=== PATIENT | female | born 1980 | race Caucasian/White ===

== ENCOUNTER 2016-10-27 09:52 | Emergency (ER) | payer BC, OTHER ==
[2016-10-27] MEDS ORDERED: PROMETHAZINE HCL 25 MG in DEXTROSE 5 % IN WATER 50 ML IV ONE ×2 (10:49)
[2016-10-27] MEDS ORDERED: NORMAL SALINE 1,000 ML IV ONE (10:49)
[2016-10-27] MEDS ORDERED: diphenhydrAMINE HCL 50 MG/ML VIAL IV ONE ×2 (10:49→12:23)
[2016-10-27] MEDS ORDERED: KETOROLAC TROMETHAMINE 30 MG/ML VIAL IV ONE (10:49)
--- NOTE | 2016-10-27 10:56 | ERNOTE ---
Medical Problem HPI - Narrative Date of Service: 10/27/16 - General Chief Complaint: Nausea/Vomiting Time Seen by Provider: 10/27/16 10:39 Source: patient Exam Limitations: no limitations - Immun/Allergies/Home Medications Immunizations: IMMUNIZATION HX Immunizations Up to Date Yes History of Influenza Vaccine No Hx Pneumococcal Vaccination No Allergies/Adverse Reactions: Allergies mesalamine [From Asacol] Allergy (Mild, Verified 10/27/16 10:38) rash latex Allergy (Verified 10/27/16 10:38) Penicillins Allergy (Verified 10/27/16 10:38) Sulfa (Sulfonamide Antibiotics) [Sulfa(Sulfonamide Antibiotics)] Allergy ( Verified 10/27/16 10:38) Home Medications: HOME MEDICATIONS Mirtazapine [Remeron] 45 mg PO DAILY 02/22/13 [Last Taken Unknown] Zolpidem Tartrate [Ambien] 10 mg PO HS 02/22/13 [Last Taken Unknown] Acetaminophen [Tylenol] 650 mg PO QID PRN #0 tablet 10/16/15 [Last Taken Unknown ] Diazepam [Valium] 5 mg VG BID 02/29/16 [Last Taken Unknown] Diclofenac Sodium [Voltaren] 75 mg PO PRN 02/29/16 [Last Taken Unknown] Sumatriptan Succinate [Imitrex] 1,150 mg PO PRN PRN 02/29/16 [Last Taken Unknown ] ALPRAZolam [Xanax] 0.25 mg PO TID PRN 10/27/16 [Last Taken Unknown] Dicyclomine HCl [Bentyl] 10 - 20 mg PO TID #60 tab 10/27/16 [Last Taken Unknown] Ondansetron [Zofran Odt] 4 mg PO Q6H PRN #20 tab 10/27/16 [Last Taken Unknown] Tramadol HCl [Tramadol HCl ER] 100 mg PO DAILY 10/27/16 [Last Taken Unknown] - History of Present History Narrative: Pt. with known history of chrohn's disease comes in with c/o nausea, vomiting, abd pain, headache, and dizziness since 1999. Pt. states that she did notice foul smelling burps yesterday but did not start feeling bad until last night and her symptoms are worsening throughout the night. Pt. denies the ability to tolerate any foods or fluids. Pt. denies any chest pain, palpitations, prehospital treatment, alleviating factors, or aggravating factors. Review of Systems - Review of Systems Constitutional: Present: fever, weakness, fatigue, malaise. Absent: recent illness, chills EYE: Present: no symptoms reported ENT: Present: no symptoms reported. Absent: nose pain, nose congestion, nasal drainage, sore throat Respiratory: Present: no symptoms reported. Absent: shortness of breath, cough , wheezing Cardiology: Present: no symptoms reported. Absent: chest pain, palpitations, edema Gastrointestinal/Abdominal: Present: nausea, vomiting, abdominal pain. Absent: diarrhea, constipation Genitourinary: Present: no symptoms reported Musculoskeletal: Present: no symptoms reported. Absent: back pain, joint pain Skin: Present: no symptoms reported Neurological: Present: headache, dizziness/light-headedness. Absent: numbness, tingling All Other Systems: All systems neg except as marked - Patient's Past Medical History Patient History - Medical: Anxiety, Depression, Migraines, Other - Colitis Patient History - Cardiac/Respiratory: No pertinent hx Patient History - Cancer: No Hx of Cancer Patient History - Surgical Procedures: , Hysterectomy, Tubal Ligation - Family History Mother Family History - Medical: No pertinent hx Family History - Cardiac/Respiratory: Hypertension Father Family History - Medical: History Unknown Family History - Cardiac/Respiratory: History Unknown Grandfather-Maternal Family History - Cardiac/Respiratory: CHF - Social History Living Situations: home Does anyone smoke in the home?: No Alcohol Use: rarely Drug Use: none Physical Exam - Physical Exam General Appearance: Present: wd/wn, alert, no apparent distress Eye Exam: Normal inspection: bilateral, PERRL: bilateral, EOMI: bilateral Ears, Nose, Throat: Present: normal ENT inspection, hearing grossly normal, normal pharynx Neck: Present: normal inspection, nontender. Absent: lymphadenopathy (R), lymphadenopathy (L) Respiratory: Present: no respiratory distress, normal breath sounds, no accessory muscle use, chest nontender, lungs clear Cardiovascular/Chest: Present: regular rate, rhythm, no murmur, normal peripheral pulses Gastrointestinal/Abdominal: Present: normal bowel sounds, nondistended, soft, no organomegaly, tenderness - RLQ LUQ. 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 Absent: pallor, skin rash ED Progress - Results and Orders Patient's Lab Results:: I have reviewed the patient's lab results. - Vital Signs Patient's Vital Signs:: I have reviewed the patient's vital signs. Vital Signs: Vital Signs 10/27/16 10:34 Temperature 36.6 C Pulse Rate 122 H Respiratory 12 Rate Blood Pressure 110/67 O2 Sat by Pulse 100 Oximetry - X-Ray X-Ray #1 X-Ray: abdomen Interpretation: Reviewed by me X-ray Comments: Technique: Abdominal series (4 views) Comparison: Prior exams the most recent is July 23, 2016. Findings: Lung bases are clear. Moderate stool retention. Nonobstructive bowel gas pattern. No signs of mass or mass effect. No pneumoperitoneum. No obvious genitourinary calcifications. No acute osseous findings. There is transitional lumbosacral anatomy with pseudoarticulation of the last lumbar segment transverse processes with the sacrum, which may be a source of chronic low back pain. IMPRESSION: Stool retention. Nonobstructed bowel gas pattern. Electronically signed by Neil Brown D.O.. - Progress/Reassessment Chief Complaint: Nausea/Vomiting Progress:: Improved Departure - Departure Clinical Impression: Viral gastroenteritis, Dehydration Disposition: Home self-care Condition: Good Instructions: Viral Gastroenteritis, Adult, [id number] Additional Instructions: Please follow up with Dr Young in 2-3 days. Please start probiotics daily. Referrals: Zainab Young DO [Primary Care Provider] - Prescriptions: Dicyclomine HCl [Bentyl] 10 - 20 mg PO TID #60 tab Ondansetron [Zofran Odt] 4 mg PO Q6H PRN #20 tab PRN Reason: Nausea And Vomiting
[2016-10-27 11:08] LABS: Hematocrit 41.5 % (37.0-47.0); Hemoglobin 14.1 gm/dL (12.5-16.0); Mean Cell Volume 94.1 fl (78-100); Mean Platelet Volume 10.6 fl (6.0-9.5); Neutrophil # 6.6 K/mm3 (1.3-6.0); Neutrophil % 75.4 % (42-75.0); Platelet Count 224 K/mm3 (150-450); Red Blood Count 4.41 M/mm3 (4.2-5.4); Red Cell Distribution Width 11.8 % (11.5-14.0); White Blood Count 8.8 K/mm3 (4.0-10.5)
[2016-10-27] MEDS ORDERED: diphenhydrAMINE HCL 50 MG/ML VIAL ONE ×2 (11:31→12:41)
[2016-10-27] MEDS ORDERED: KETOROLAC TROMETHAMINE 30 MG/ML VIAL ONE (11:31)
[2016-10-27 11:32] LABS: Albumin * 3.5 gm/dl (3.4-5.0); Anion Gap 14.3 mmol/L (6.8-13.8); BUN/Creatinine Ratio 12.3 (9.0-21.6); Bilirubin, Total 0.6 mg/dL (0.0-1.1); Ca. Corrected For Albumin 9.1 mg/dL (8.4-10.2); Potassium 4.3 mmol/L (3.4-4.6); Total Protein 7.4 gm/dL (6.2-8.2)
[2016-10-27] MEDS ORDERED: ONDANSETRON HCL/PF 2 MG/ML VIAL IV ONE (12:23)
[2016-10-27] MEDS ORDERED: DICYCLOMINE HCL 10 MG/ML AMPUL IM ONE ×2 (12:23→12:41)
[2016-10-27] MEDS ORDERED: ONDANSETRON HCL/PF 2 MG/ML VIAL ONE (12:41)
[2016-10-27] MEDS ORDERED: DICYCLOMINE HCL 20 MG TABLET PO ONE (13:15)
[2016-10-27] MEDS ORDERED: DICYCLOMINE HCL 20 MG TABLET ONE (13:53)
[2016-10-27 14:12] LABS: Urine Bilirubin Negative (NEGATIVE); Urine Blood Negative /ul (NEGATIVE); Urine Ketone 15 mg/dL (NEGATIVE); Urine Nitrite Negative (NEGATIVE); Urine Protein Negative (NEGATIVE); Urine pH 6.5 pH (5.0-7.0)
[2016-10-27] MEDS ORDERED: ACETAMINOPHEN 500 MG TABLET PO ONE (14:23)
[2016-10-27 14:43] LABS: Urine Appearance Slightly Cloudy; Urine Color Yellow; Urine WBC None Seen /hpf (0-5)
[2016-10-27 14:44] LABS: Urine Bacteria 4+; Urine RBC None Seen /hpf (0-5)
[2016-10-27 18:13] VITALS: BP 101/66
== END 2016-10-27 15:21 | disposition home or self-care (01) ==
LOC: ER 09:52
DX: E86.0 Dehydration (principal); A08.4 Viral intestinal infection, unspecified; Z90.710 Acquired absence of both cervix and uterus; F41.1 Generalized anxiety disorder; F32.9 Major depressive disorder, single episode, unspecified

== ENCOUNTER 2016-12-05 07:31 | Emergency (ER) | payer BC, OTHER ==
[2016-12-05] MEDS ORDERED: NORMAL SALINE 1,000 ML IV ONE (08:03)
[2016-12-05] MEDS ORDERED: diphenhydrAMINE HCL 50 MG/ML VIAL IV ONE ×2 (08:03→09:31)
[2016-12-05] MEDS ORDERED: KETOROLAC TROMETHAMINE 30 MG/ML VIAL IV ONE (08:03)
[2016-12-05] MEDS ORDERED: PROMETHAZINE HCL 25 MG in DEXTROSE 5 % IN WATER 50 ML IV ONE ×4 (08:03→09:31)
[2016-12-05 08:25] LABS: Hematocrit 43.3 % (37.0-47.0); Hemoglobin 14.8 gm/dL (12.5-16.0); Mean Cell Volume 94.3 fl (78-100); Mean Corpuscular Hemoglobin 32.2 pg (27-31); Mean Corpuscular Hgb Conc 34.2 g/dl (32-36); Mean Platelet Volume 11.6 fl (6.0-9.5); Neutrophil # 6.9 K/mm3 (1.3-6.0); Neutrophil % 77.1 % (42-75.0); Platelet Count 236 K/mm3 (150-450); Red Blood Count 4.59 M/mm3 (4.2-5.4); Red Cell Distribution Width 11.9 % (11.5-14.0); White Blood Count 8.9 K/mm3 (4.0-10.5)
--- OUTSIDE RECORDS SUMMARY | 2016-12-05 08:30 | XMS REPORT | Continuity of Care Document ---
:1980 Author Organization [facility] ([facility]) Address [address] [place] [address] Phone [phone] Care Team Providers Name Role Phone Provider, No-Primary Care Primary Care Provider Unavailable Source Comments This disclosure is being made pursuant to the Care Everywhere program, applicable federal and state laws, and may not contain all informaitonavailable regarding this patient.[facility] ([facility]) Active Allergies and Adverse Reactions Allergen Noted Date Severity Reactions Comments Gadobenate Dimeglumine 12/14/2011 Headache Severe headache with Multihance - questionable allergy - Use a different brand of Gadolinium for subsequent MRI's Latex 12/03/2011 Anaphylaxis Metronidazole 12/03/2011 Nausea & Vomiting Penicillins 12/03/2011 Anaphylaxis Sulfa (Sulfonamide 12/03/2011 Unknown Antibiotics) Current Medications Prescription Sig. Disp. Refills Start Date End Date Status mirtazapine (REMERON) Take 45 mg by Active 45 mg tablet mouth at bedtime. zolpiDEM 10 mg tablet Take 10 mg by Active mouth at bedtime as needed. Indications: Sleep-Onset Insomnia SUMAtriptan (IMITREX) Take 100 mg by Active 100 mg tablet mouth as needed. Indications: Migraine acetaminophen 325 mg Take 325 mg by Active tablet mouth every 4 hours as needed. ibuprofen 200 mg Take 200 mg by Active tablet mouth every 6 hours as needed. citalopram PO Take by mouth. Active diclofenac 75 mg EC Take 75 mg by Active tablet mouth 2 times daily. diazepam 10 mg tablet Insert 1 tab 60 tablet 2 03/23/2016 Active vaginally 2 times a day. amitriptyline 10 mg Take 3 tablets (30 60 tablet 3 05/04/2016 Active tablet mg total) by mouth at bedtime. 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626 m (5' 4.02") 12/30/2015 1:12 PM CDT Weight 62.1 kg (136 lb 14.5 oz) 05/04/2016 9:36 AM CDT Body Mass Index 23.49 05/04/2016 9:36 AM CDT Oxygen Saturation 100% 01/19/2012 3:01 PM CDT Plan of Care Health Maintenance Due Date Last Done Comments Hepatitis B Vaccine (1 of 3 - Primary Series) 1980 Tdap Vaccine 1992 Lipid Disorder Screening 1999 MMR Vaccine 1999 Td Vaccine 1999 Varicella Vaccine (1 of 2 - Adult - No Evidence of 1999 Immunity) Cervical Cancer Screening 2011 Influenza Vaccine: Seasonal (#1) 05/17/2016 Results from Last 3 Months Not on file
[2016-12-05 08:37] LABS: Anion Gap 14.3 mmol/L (6.8-13.8); BUN/Creatinine Ratio 12.7 (9.0-21.6); Bilirubin, Total 0.6 mg/dL (0.0-1.1); Ca. Corrected For Albumin 9.1 mg/dL (8.4-10.2); Calcium * 9.4 mg/dL (7.9-10.9); Carbon Dioxide 25.2 mmol/L (24-32.6); Potassium 4.5 mmol/L (3.4-4.6); Total Protein 8.3 gm/dL (6.2-8.2)
[2016-12-05] MEDS ORDERED: KETOROLAC TROMETHAMINE 30 MG/ML VIAL ONE (08:42)
[2016-12-05] MEDS ORDERED: diphenhydrAMINE HCL 50 MG/ML VIAL ONE ×2 (08:42→09:34)
[2016-12-05 08:47] LABS: Urine Bilirubin 1 mg/dl (NEGATIVE); Urine Blood Negative /ul (NEGATIVE); Urine Ketone 15 mg/dL (NEGATIVE); Urine Nitrite Negative (NEGATIVE); Urine Protein Negative (NEGATIVE); Urine Specific Gravity >=1.030 SP.GR. (1.005-1.010); Urine Urobilinogen Normal (NORMAL)
--- NOTE | 2016-12-05 08:51 | ERNOTE ---
Medical Problem HPI - Narrative Date of Service: 12/05/16 - General Chief Complaint: Nausea/Vomiting Time Seen by Provider: 12/05/16 07:59 Source: patient Exam Limitations: no limitations - Immun/Allergies/Home Medications Immunizations: IMMUNIZATION HX Immunizations Up to Date Yes History of Influenza Vaccine No Hx Pneumococcal Vaccination No Allergies/Adverse Reactions: Allergies mesalamine [From Asacol] Allergy (Mild, Verified 12/05/16 07:38) rash latex Allergy (Verified 12/05/16 07:38) Penicillins Allergy (Verified 12/05/16 07:38) Sulfa (Sulfonamide Antibiotics) [Sulfa(Sulfonamide Antibiotics)] Allergy ( Verified 12/05/16 07:38) Home Medications: HOME MEDICATIONS Mirtazapine [Remeron] 45 mg PO DAILY 02/22/13 [Last Taken Unknown] Zolpidem Tartrate [Ambien] 10 mg PO HS 02/22/13 [Last Taken Unknown] Acetaminophen [Tylenol] 650 mg PO QID PRN #0 tablet 10/16/15 [Last Taken Unknown ] Diazepam [Valium] 5 mg VG BID 02/29/16 [Last Taken Unknown] Diclofenac Sodium [Voltaren] 75 mg PO PRN 02/29/16 [Last Taken Unknown] ALPRAZolam [Xanax] 0.25 mg PO TID PRN 10/27/16 [Last Taken Unknown] Ondansetron [Zofran Odt] 4 mg PO Q6H PRN #20 tab 10/27/16 [Last Taken Unknown] Tramadol HCl [Tramadol HCl ER] 100 mg PO DAILY 10/27/16 [Last Taken Unknown] Butalb/Acetaminophen/Caffeine [Fioricet] 2 tab PO QID PRN #60 tablet 12/05/16 [ Last Taken Unknown] Linaclotide [Linzess] 145 mcg PO DAILY #30 capsule 12/05/16 [Last Taken Unknown] Promethazine HCl [Phenergan (Promethazine)] 25 mg PO QID PRN 12/05/16 [Last Taken Unknown] Topiramate [Topamax] 25 mg PO BID #60 tablet 12/05/16 [Last Taken Unknown] - History of Present History Narrative: Has a history of migraine. Yesterday morning awoke with a migraine and nausea. With treatment, the headache went away. The nausea has persisted. She vomited once yesterday and once today. She is nauseated now. No diarrhea. Chills. No fever. No diarrhea. Hurst all over. Malaise. Timing: constant, getting worse Severity: moderate Modifying Factors - (Improves): Present: other - nothin Modifying Factors - (Worsens): Present: eating Review of Systems - Review of Systems Constitutional: Present: chills, weakness, malaise, decreased activity level EYE: Present: no symptoms reported ENT: Present: no symptoms reported Respiratory: Present: no symptoms reported Cardiology: Present: no symptoms reported Gastrointestinal/Abdominal: Present: See HPI Genitourinary: Present: no symptoms reported Musculoskeletal: Present: muscle pain, muscle stiffness Skin: Present: no symptoms reported Neurological: Present: headache Endocrine: Present: no symptoms reported Hematologic/Lymphatic: Present: no symptoms reported Psych: Present: no symptoms reported All Other Systems: All systems neg except as marked - Patient's Past Medical History Patient History - Medical: Anxiety, Depression, Migraines Patient History - Cardiac/Respiratory: No pertinent hx Patient History - Cancer: No Hx of Cancer Patient History - Surgical Procedures: , Hysterectomy, Tubal Ligation Patient History - Other: None - Family History Mother Family History - Medical: No pertinent hx Family History - Cardiac/Respiratory: Hypertension Father Family History - Medical: History Unknown Family History - Cardiac/Respiratory: History Unknown Grandfather-Maternal Family History - Cardiac/Respiratory: CHF - Social History Living Situations: spouse Abuse History: No History of abuse Psych History: Hx of Anxiety, Hx of Depression Does anyone smoke in the home?: No Smoking Status: Former smoker Alcohol Use: rarely Drug Use: none - Immunizations Immunizations Up to Date: Yes Hx Pneumococcal Vaccination: No History of Influenza Vaccine: No Physical Exam - Physical Exam General Appearance: Present: wd/wn, alert, no apparent distress Eye Exam: Normal inspection: bilateral, PERRL: bilateral, EOMI: bilateral Ears, Nose, Throat: Present: normal ENT inspection, hearing grossly normal Neck: Present: normal inspection, nontender Respiratory: Present: no respiratory distress, normal breath sounds Cardiovascular/Chest: Present: regular rate, rhythm, no murmur Gastrointestinal/Abdominal: Present: normal bowel sounds, nontender, nondistended, soft, no organomegaly Back Exam: Present: normal inspection, normal range of motion, no CVA tenderness , no vertebral tenderness Extremity Exam: Present: normal inspection, no edema Skin Exam: Present: normal color, warm/dry ED Progress - Results and Orders Patient's Lab Results:: I have reviewed the patient's lab results. - Vital Signs Patient's Vital Signs:: I have reviewed the patient's vital signs. Vital Signs: Vital Signs 12/05/16 07:34 Temperature 35.8 C L Pulse Rate 105 H Respiratory 16 Rate Blood Pressure 103/81 O2 Sat by Pulse 100 Oximetry - Progress/Reassessment Chief Complaint: Nausea/Vomiting Progress:: Improved Departure - Departure Clinical Impression: Fibromyalgia Constipation Qualifiers: Constipation type: slow transit constipation Qualified Code(s): K59.01 - Slow transit constipation Migraine Qualifiers: Migraine type: without aura Status migrainosus presence: without status migrainosus Intractability: not intractable Qualified Code(s): G43.009 - Migraine without aura, not intractable, without status migrainosus Disposition: Home self-care Condition: Good Instructions: Migraine Headache, [id number], Constipation, Adult, Easy-to- Read Additional Instructions: See Dr. Young next week. Referrals: Zainab Young DO [Primary Care Provider] - Prescriptions: Butalb/Acetaminophen/Caffeine [Fioricet] 2 tab PO QID PRN #60 tablet PRN Reason: headache Linaclotide [Linzess] 145 mcg PO DAILY #30 capsule Topiramate [Topamax] 25 mg PO BID #60 tablet
[2016-12-05 08:57] LABS: Urine Appearance Slightly Cloudy; Urine Color Dark Yellow
[2016-12-05 08:58] LABS: Urine Bacteria 1+; Urine RBC TRACE /hpf (0-5); Urine WBC TRACE /hpf (0-5)
[2016-12-05] MEDS ORDERED: traMADol HCL 50 MG TABLET PO ONE (09:31)
[2016-12-05] MEDS ORDERED: traMADol HCL 50 MG TABLET ONE (09:34)
[2016-12-05 11:58] VITALS: BP 102/70
== END 2016-12-05 11:56 | disposition home or self-care (01) ==
LOC: ER 07:31
DX: K59.01 Slow transit constipation (principal); M79.7 Fibromyalgia; G43.009 Migraine without aura, not intractable, without status migrainosus

== ENCOUNTER 2016-12-15 06:50 | Emergency (ER) | payer BC, OTHER ==
[2016-12-15 06:55] VITALS: BP 165/98
[2016-12-15] MEDS ORDERED: PHENAZOPYRIDINE HCL 100 MG TABLET PO ONE (07:05)
[2016-12-15] MEDS ORDERED: PHENAZOPYRIDINE HCL 100 MG TABLET ONE (07:08)
[2016-12-15 07:09] LABS: Urine Bilirubin 1 mg/dl (NEGATIVE); Urine Blood 25 /ul (NEGATIVE); Urine Ketone 15 mg/dL (NEGATIVE); Urine Protein 30 mg/dL (NEGATIVE); Urine Specific Gravity >=1.030 SP.GR. (1.005-1.010); Urine Urobilinogen Normal (NORMAL)
--- NOTE | 2016-12-15 07:15 | ERNOTE ---
ER Female HPI Stated Complaint: UTI Presenting Symptoms: dysuria Time Seen by Provider: 12/15/16 06:57 Source: patient Exam Limitations: no limitations Immunizations: IMMUNIZATION HX Immunizations Up to Date Yes History of Influenza Vaccine No Hx Pneumococcal Vaccination No Allergies/Adverse Reactions: Allergies mesalamine [From Asacol] Allergy (Mild, Verified 12/15/16 06:56) rash latex Allergy (Verified 12/15/16 06:56) Penicillins Allergy (Verified 12/15/16 06:56) Sulfa (Sulfonamide Antibiotics) [Sulfa(Sulfonamide Antibiotics)] Allergy ( Verified 12/15/16 06:56) Home Medications: HOME MEDICATIONS Mirtazapine [Remeron] 45 mg PO DAILY 02/22/13 [Last Taken Unknown] Zolpidem Tartrate [Ambien] 10 mg PO HS 02/22/13 [Last Taken Unknown] Acetaminophen [Tylenol] 650 mg PO QID PRN #0 tablet 10/16/15 [Last Taken Unknown ] Diazepam [Valium] 5 mg VG BID 02/29/16 [Last Taken Unknown] Diclofenac Sodium [Voltaren] 75 mg PO PRN 02/29/16 [Last Taken Unknown] ALPRAZolam [Xanax] 0.25 mg PO TID PRN 10/27/16 [Last Taken Unknown] Tramadol HCl [Tramadol HCl ER] 100 mg PO DAILY 10/27/16 [Last Taken Unknown] Butalb/Acetaminophen/Caffeine [Fioricet] 2 tab PO QID PRN #60 tablet 12/05/16 [ Last Taken Unknown] Linaclotide [Linzess] 145 mcg PO DAILY #30 capsule 12/05/16 [Last Taken Unknown] Topiramate [Topamax] 25 mg PO BID #60 tablet 12/05/16 [Last Taken Unknown] Ciprofloxacin HCl [Cipro] 500 mg PO BID #20 tab 12/15/16 [Last Taken Unknown] Phenazopyridine HCl [Pyridium] 100 mg PO TID #6 tab 12/15/16 [Last Taken Unknown ] - History of Present Illness Narrative: Pt states that she has had dysuria for 3-4 days. Last night she began to have low back pain. Timing: Present: getting worse Quality: Present: moderate, burning Onset Location: Present: suprapubic Activities at Onset: Present: sleep Associated Symptoms: Present: urinary frequency, low back pain - central/ sacral Review of Systems - Review of Systems Constitutional: Absent: recent illness EYE: Present: no symptoms reported ENT: Present: no symptoms reported Respiratory: Present: no symptoms reported Cardiology: Present: no symptoms reported Gastrointestinal/Abdominal: Absent: nausea, vomiting, abdominal pain Genitourinary: Present: See HPI Musculoskeletal: Present: back pain Skin: Present: no symptoms reported Neurological: Present: no symptoms reported Endocrine: Present: no symptoms reported Hematologic/Lymphatic: Present: no symptoms reported Psych: Present: no symptoms reported - Patient's Past Medical History Patient History - Medical: Anxiety, Depression, Migraines Patient History - Cardiac/Respiratory: No pertinent hx Patient History - Cancer: No Hx of Cancer Patient History - Surgical Procedures: , Hysterectomy, Tubal Ligation Patient History - Other: None - Family History Mother Family History - Medical: No pertinent hx Family History - Cardiac/Respiratory: Hypertension Father Family History - Medical: History Unknown Family History - Cardiac/Respiratory: History Unknown Grandfather-Maternal Family History - Cardiac/Respiratory: CHF - Social History Living Situations: home Abuse History: No History of abuse Psych History: Hx of Anxiety, Hx of Depression Does anyone smoke in the home?: No Smoking Status: Never smoker Alcohol Use: rarely Drug Use: none - Immunizations Immunizations Up to Date: Yes Hx Pneumococcal Vaccination: No History of Influenza Vaccine: No Physical Exam - Physical Exam General Appearance: Present: wd/wn, alert, mild distress Eye Exam: Normal inspection: bilateral Respiratory: Present: no respiratory distress, no accessory muscle use Gastrointestinal/Abdominal: Present: normal bowel sounds, nontender Back Exam: Present: no vertebral tenderness, other - sacral tenderness Extremity Exam: Present: normal inspection Neurological Exam: Present: alert, oriented, no motor/sensory deficits Skin Exam: Present: normal color, warm/dry ED Progress - Results and Orders Patient's Lab Results:: I have reviewed the patient's lab results. Results and Orders: Laboratory Tests 12/15/16 07:03 Urine Color Yellow Urine Appearance Clear Urine pH 6.0 Ur Specific [place] >=1.030 Urine Protein 30 H Urine Glucose (UA) Negative Urine Ketones 15 Urine Blood 25 H Urine Nitrate Positive H Urine Bilirubin 1 H Urine Ictotest Negative Prot Sulfosalicylic Acd 1+ Urine Urobilinogen Normal Ur Leukocyte Esterase 100 H Urine RBC 5-10 H Urine WBC 5-10 H Ur Epithelial Cells 0-5 Urine Bacteria 2+ H Urine Mucus Few - 1+ H Urine Culture Comments Culture to follow - Vital Signs Patient's Vital Signs:: I have reviewed the patient's vital signs. Vital Signs: Vital Signs 12/15/16 06:52 Temperature 35.0 C L Pulse Rate 95 Respiratory 16 Rate Blood Pressure 165/98 O2 Sat by Pulse 100 Oximetry - Progress/Reassessment Chief Complaint: Genitourinary Problem Departure Clinical Impression: UTI (urinary tract infection) Qualifiers: Urinary tract infection type: acute pyelonephritis Qualified Code(s): N10 - Acute pyelonephritis - Departure Disposition: Home self-care Condition: Fair Instructions: Pyelonephritis, Adult, [id number] Referrals: Zainab Young DO [Primary Care Provider] - Prescriptions: Ciprofloxacin HCl [Cipro] 500 mg PO BID #20 tab Phenazopyridine HCl [Pyridium] 100 mg PO TID #6 tab
--- OUTSIDE RECORDS SUMMARY | 2016-12-15 07:21 | XMS REPORT | Continuity of Care Document ---
:1980 Author Organization [facility] ([facility]) Address [address] [place] [address] Phone [phone] Care Team Providers Name Role Phone Provider, No-Primary Care Primary Care Provider Unavailable Source Comments This disclosure is being made pursuant to the Care Everywhere program, applicable federal and state laws, and may not contain all informaitonavailable regarding this patient.[facility] ([facility]) Active Allergies and Adverse Reactions Allergen Noted [...]
[2016-12-15 07:25] LABS: Urine Appearance Clear; Urine Bacteria 2+; Urine Color Yellow; Urine Mucus Few - 1+; Urine Nitrite Positive (NEGATIVE)
== END 2016-12-15 07:39 | disposition home or self-care (01) ==
LOC: ER 06:50
DX: N10 Acute pyelonephritis (principal); F41.8 Other specified anxiety disorders

== ENCOUNTER 2017-01-12 13:12 | Observation (INO) | payer BC, OTHER ==
[~2017-01-12 13:12] MED LIST: KETOROLAC TROMETHAMINE 15 MG/ML VIAL IV PRN; METOCLOPRAMIDE HCL 5 MG/ML VIAL IV PRN; MORPHINE SULFATE 2 MG/ML DISP.SYRIN IV PRN; NORMAL SALINE 1,000 ML IV PRN; ONDANSETRON HCL/PF 2 MG/ML VIAL IV PRN; OXYBUTYNIN CHLORIDE 5 MG TABLET PO PRN; oxyCODONE HCL/ACETAMINOPHEN 1 TAB TABLET PO PRN
--- OUTSIDE RECORDS SUMMARY | 2017-01-12 13:16 | XMS REPORT | Continuity of Care Document ---
:1980 Author Organization [facility] ([facility]) Address [address] [place] [address] Phone [phone] Care Team Providers Name Role Phone Provider, No-Primary Care Primary Care Provider Unavailable Source Comments This disclosure is being made pursuant to the Care Everywhere program, applicable federal and state laws, and may not contain all informaitonavailable regarding this patient.[facility] ([facility]) Active Allergies and Adverse Reactions Allergen [...]
[2017-01-12] MEDS ORDERED: NORMAL SALINE 1,000 ML IV ONE ×3 (13:58→17:44)
--- NOTE | 2017-01-12 15:23 | OR ---
Operative Report - Dictated Report Narrative: Location: Main OR Anesthesia: [facility] anesthesia Surgeon: Dr. Pop Preoperative diagnosis: Presumed interstitial cystitis Postoperative diagnosis: Fairly pristine bladder mucosa without erythema or ulceration, normal retrogrades Procedure: #1 Cystoscopy with bladder washing for cytology and culture Bilateral retrograde pyelograms #2 exam under anesthesia Indications: 38-year-old female prior diagnosis of interstitial cystitis prior abnormal urinalysis also with history of stones and chronic/intermittent low back pain. Above-mentioned procedures indicated to assess bladder retrogrades indicated to make sure no ureteral obstruction. Description: Consent obtained. Patient brought to the operating room where general endotracheal anesthesia was induced. Placed in the dorsal lithotomy position. Prepped and draped. Timeout taken. Rigid cystoscope introduced into the bladder with ease and quick cystoscopy revealed no tumors, stones or suspicious lesions . Bladder mucosa was pristine. Visualization was excellent. Bladder looked nothing like typical interstitial cystitis bladder. Washing was obtained sent for cytology and micro -/culture. Bilateral retrogrades obtained and interpreted by Dr. Carrasco. Left ureter identified intubated with 5 Wolof catheter and left retrograde obtained. 5-7 mL of Isovue was injected to perform retrograde. Distal mid proximal ureter nonhydronephrotic without filling defects. Left collecting system was very arboreal with a longer upper pole infundibulum. Calyces were delicate. No filling defects, no hydronephrosis. Prompt drainage upon removal. Essentially normal retrograde Right ureter identified intubated with 5 Wolof catheter and right retrograde obtained. 5-7 mL of Isovue was injected to perform retrograde. Distal mid proximal ureter nonhydronephrotic without filling defects. Right collecting system nonhydronephrotic, delicate calyces and no filling defects. Lesser arboreal than another side. Prompt drainage. Essentially normal retrograde I really didn't see anything in the bladder that was worth biopsy. Pictures obtained including urethral picture which was normal. Exam under anesthesia performed. No palpable urethral abnormalities. No vaginal masses. Normal cervix. Specimen: Washing for cytology and culture EBL: 0 ml Condition: tolerated procedure Important findings: Normal bladder, normal retrogrades. Nothing consistent with interstitial cystitis in terms of mucosa appearance. Follow-up: I will see her in 2-3 weeks to go over urine results. Need decide where to go with medical therapy. Possible symptomatology not related to urinary system possibly GI/musculoskeletal etc. We will work on symptomatology
[2017-01-12] MEDS ORDERED: OPIUM/BELLADONNA ALKALOIDS 1 SUPP SUPP RC ONE (16:00)
[2017-01-12] MEDS ORDERED: ALPRAZolam 0.25 MG TABLET PO PRN (16:57)
[2017-01-12] MEDS ORDERED: KETOROLAC TROMETHAMINE 15 MG/ML VIAL IV PRN (16:58)
[2017-01-12] MEDS ORDERED: ENOXAPARIN SODIUM 40 MG/0.4 ML SYRG SC SCH (17:00)
--- OUTSIDE RECORDS SUMMARY | 2017-01-12 17:13 | XMS REPORT | Continuity of Care Document ---
:1980 Author Organization [facility] ([facility]) Address [address] [place] [address] Phone [phone] Care Team Providers Name Role Phone Provider, No-Primary Care Primary Care Provider Unavailable Source Comments This disclosure is being made pursuant to the Care Everywhere program, applicable federal and state laws, and may not contain all informaitonavailable regarding this patient.[facility] ([facility]) Active Allergies and Adverse Reactions Allergen Noted [...]
[2017-01-12] MEDS: PHENAZOPYRIDINE HCL 100 MG TABLET PO PRN ×2 (17:25→23:47)
--- NOTE | 2017-01-12 19:14 | HP ---
Chief Complaint - Chief Complaint Date of Service: 01/12/17 Time of Service: 19:07 Chief Complaint: Vomiting and Pain History of Present Illness: This is a 36 y/o woman with chronic abdominopelvic pain. She was also thought to have interstitial cystitis. Today she underwent cystoscopy with retrogrades , all of which was normal. Following surgery, she had uncontrolled pain and vomiting, for which reasons she was admitted to an observation bed. - Patient's Past Medical History Patient History - Medical: Anxiety, Depression, Headache, Kidney stone, Migraines Patient History - Cardiac/Respiratory: No pertinent hx Patient History - Cancer: No Hx of Cancer Patient History - Surgical Procedures: , Tubal Ligation, Other Patient History - Other: None LMP (females 10-50): patient had partial hysterectomy - Family History Mother Family History - Medical: No pertinent hx Family History - Cardiac/Respiratory: Hypertension Family History - Cancer: No pertinent family hx Father Family History - Medical: History Unknown Family History - Cardiac/Respiratory: History Unknown Family History - Cancer: Non Hodgkins Lymphoma Grandfather-Maternal Family History - Medical: No pertinent hx Family History - Cardiac/Respiratory: CHF Family History - Cancer: No pertinent family hx - Social History Living Situations: spouse Abuse History: No History of abuse Psych History: Hx of Anxiety, Hx of Depression, Current tx/ever been on anti- depressants or anti-anxiety meds Does anyone smoke in the home?: No Smoking Status: Never smoker Have you smoked in the past 12 months: No Do you dip or chew tobacco: No Patient requests Smoking Cessation Consult: No Initiate information on Smoking Cessation: No Alcohol Use: none Drug Use: none - Immunizations Immunizations Up to Date: Yes Hx Pneumococcal Vaccination: No History of Influenza Vaccine: No Review Of Systems (GEN) - Review of Systems Generalized/Overall Review: Present: No Symptoms Reported EENTM: Present: No Symptoms Reported Respiratory: Present: No Symptoms Reported Cardiac: Present: No Symptoms Reported Abdominal: Present: Nausea, Vomiting, Abdominal Pain Genitourinary: Present: Other - pelvic pain Musculoskeletal: Present: No Symptoms Reported Neurological: Present: No Symptoms Reported Skin: Present: No Symptoms Reported Endocrine: Present: No Symptoms Reported Misc: All systems neg except as marked Immunizations: IMMUNIZATION HX Immunizations Up to Date Yes History of Influenza Vaccine No Hx Pneumococcal Vaccination No Allergies/Adverse Reactions: Allergies Allergy/AdvReac Type Severity Reaction Status Date / Time latex Allergy Severe Swelling Verified 01/12/17 13:29 (Other) Penicillins Allergy Severe "can't Verified 01/12/17 13:29 breathe" Sulfa (Sulfonamide Allergy Severe Hives Verified 01/12/17 13:29 Antibiotics) [Sulfa(Sulfonamide Antibiotics)] mesalamine [From Asacol] Allergy Mild rash Verified 01/12/17 13:29 Home Medications: HOME MEDICATIONS Ibuprofen [Motrin] 600 mg PO Q6H PRN 01/10/17 [Last Taken Unknown] ALPRAZolam [Xanax] 0.25 mg PO TID PRN 01/12/17 [Last Taken Unknown] Amitriptyline HCl [Elavil] 10 mg PO HS 01/12/17 [Last Taken Unknown] Mirtazapine [Remeron] 45 mg PO HS 01/12/17 [Last Taken Unknown] Zolpidem Tartrate [Ambien] 5 mg PO HS 01/12/17 [Last Taken Unknown] traMADol HCL [Ultram] 50 mg PO TID PRN 01/12/17 [Last Taken Unknown] Exam - Exam Vital Signs: Vital Signs - Last Taken Selected Entries 01/12/17 18:23 Temperature 36.8 C Temperature Oral Source Pulse Rate 69 Pulse Rhythm Regular Pulse Strength Normal Respiratory 18 Rate Respiratory Normal Depth Respiratory Normal Effort Non-Labored Respiratory Normal Pattern Blood Pressure 115/61 Blood Pressure Supine Position O2 Sat by Pulse 97 Oximetry Oxygen Delivery Room Air Method Constitutional: Present: Alert, Oriented x3, Cooperative, Well developed, Well nourished, Mild distress ENT Exam: Present: normal ENT inspection, hearing grossly normal Eye Exam: bilateral eye: normal inspection, PERRL, EOMI Neck: Present: normal inspection Back Exam: Present: normal inspection, no CVA tenderness Respiratory: Present: normal breath sounds, no respiratory distress Cardiovascular/Chest: Present: regular rate, rhythm, no murmur Abdomen: Present: Normal bowel sounds, soft, nondistended, no rebound tenderness , no hepatospenomegaly, tender - diffusely tender, especially lower abdomen Extremity: Present: normal inspection, no pedal edema Skin Exam: Present: normal color, warm/dry, no cyanosis Neurologic: Present: alert Appearance: Present: appropriate appearance, neat Eye contact: Present: cooperative Assessment/Plan - Narrative Narrative: Admit to observation for control of postop vomiting and pain. IV fluids. Estimated hospital stay, 1 midnight. - Assessment/Plan (1) Chronic abdominal pain Problem: Chronic (2) Chronic pelvic pain in female Problem: Chronic (3) Uncontrollable vomiting Problem: Acute Qualifiers: Vomiting type: unspecified Nausea presence: with nausea Qualified Code(s) : R11.2 - Nausea with vomiting, unspecified (4) Uncontrolled pain Problem: Acute
[2017-01-12 19:29] LABS: Urine Bacteria None Seen; Urine RBC None Seen /hpf (0-5); Urine WBC None Seen /hpf (0-5)
[2017-01-12] MEDS ORDERED: ENOXAPARIN SODIUM 100 MG/ML SYRG SC ONE (20:51)
[2017-01-12] MEDS ORDERED: ZOLPIDEM TARTRATE 5 MG TABLET PO SCH (21:00)
[2017-01-12] MEDS ORDERED: MIRTAZAPINE 15 MG TABLET PO SCH (21:00)
[2017-01-12] MEDS ORDERED: AMITRIPTYLINE HCL 10 MG TABLET PO SCH (21:00)
[2017-01-13] MEDS ORDERED: NORMAL SALINE 1,000 ML IV PRN (01:23)
[2017-01-13] MEDS ORDERED: MORPHINE SULFATE 2 MG/ML DISP.SYRIN IV PRN (01:25)
[2017-01-13] MEDS ORDERED: oxyCODONE HCL/ACETAMINOPHEN 1 TAB TABLET PO PRN (01:25)
[2017-01-13] MEDS ORDERED: ONDANSETRON HCL/PF 2 MG/ML VIAL IV PRN (01:27)
[2017-01-13] MEDS ORDERED: PHENAZOPYRIDINE HCL 100 MG TABLET PO PRN (01:27)
[2017-01-13] MEDS ORDERED: OXYBUTYNIN CHLORIDE 5 MG TABLET PO PRN (01:27)
[2017-01-13] MEDS ORDERED: METOCLOPRAMIDE HCL 5 MG/ML VIAL IV PRN (01:27)
[2017-01-13 05:31] LABS: Hematocrit 36.2 % (37.0-47.0); Hemoglobin 12.1 gm/dL (12.5-16.0); Mean Cell Volume 96.5 fl (78-100); Mean Corpuscular Hemoglobin 32.3 pg (27-31); Mean Corpuscular Hgb Conc 33.4 g/dl (32-36); Mean Platelet Volume 11.7 fl (6.0-9.5); Neutrophil # 8.8 K/mm3 (1.3-6.0); Neutrophil % 89.9 % (42-75.0); Platelet Count 218 K/mm3 (150-450); Red Blood Count 3.75 M/mm3 (4.2-5.4); Red Cell Distribution Width 11.5 % (11.5-14.0); White Blood Count 9.8 K/mm3 (4.0-10.5)
[2017-01-13 06:11] LABS: BUN/Creatinine Ratio 10.8 (9.0-21.6); Calcium * 8.2 mg/dL (7.9-10.9); Carbon Dioxide 22.1 mmol/L (24-32.6); Estimated Creat Clear 85.1; Potassium 4.1 mmol/L (3.4-4.6)
[2017-01-13 07:00] VITALS: BP 103/65
[2017-01-13] MEDS ORDERED: ALPRAZolam 0.5 MG TABLET PO PRN (07:54)
--- NOTE | 2017-01-13 08:09 | DS ---
(1) Chronic abdominal pain Problem: Chronic (2) Chronic pelvic pain in female Problem: Chronic (3) Uncontrollable vomiting Problem: Resolved Qualifiers: Vomiting type: unspecified Nausea presence: with nausea Qualified Code(s) : R11.2 - Nausea with vomiting, unspecified (4) Uncontrolled pain Problem: Resolved Description of Stay: The patient was admitted for outpatient cystoscopy and retrograde pyelogram because of chronic abdominopelvic pain and presumed interstitial cystitis. Procedure revealed entirely normal findings. No biopsy was done, because the bladder lining appeared pristine. Following surgery, the patient experienced lots of pain and vomiting, so she was admitted observation for symptom control. These symptoms have resolved. She notices peripheral edema, but otherwise feels good this morning. Procedures Performed: see notes below - #1 Cystoscopy with bladder washing for cytology and culture Bilateral retrograde pyelograms #2 exam under anesthesia Discharge Disposition: Home self care Disposition: Home self-care Condition: Good Discharge Activity: Activity as tolerated Discharge Diet: General/regular food Referrals: Zainab Young DO [Primary Care Provider] - Problem Oriented Discharge Instructions to Patient/Family: Nausea, Adult Additional Patient Instructions (free text): Arrange followup appts with Dr. Young and Dr. Carrasco prior to discharge today. Complete Home Medications List: Complete Home Medication List: Ibuprofen [Motrin] 600 mg PO Q6H PRN 01/10/17 ALPRAZolam [Xanax] 0.25 mg PO TID PRN 01/12/17 Amitriptyline HCl [Elavil] 10 mg PO HS 01/12/17 Mirtazapine [Remeron] 45 mg PO HS 01/12/17 Zolpidem Tartrate [Ambien] 5 mg PO HS 01/12/17 traMADol HCL [Ultram] 50 mg PO TID PRN 01/12/17 Oxybutynin Chloride [Ditropan] 5 mg PO Q6H PRN #0 tablet 01/13/17
== END 2017-01-13 10:10 | disposition home or self-care (01) ==
LOC: AMB 13:12 → MS 17:09 → INTOOBSV 17:09 → OBSVTOIN 17:09 → MS 18:19
PROVIDERS: ADMIT Allergy & Immunology; ATTEND Allergy & Immunology
PROC: BT14ZZZ Fluoroscopy of Kidneys, Ureters and Bladder (ICD-10-PCS; 2017-01-12)
PROC: 0TJ98ZZ Inspection of Ureter, Via Natural or Artificial Opening Endoscopic (ICD-10-PCS; principal; 2017-01-12 16:05)
DX: G89.18 Other acute postprocedural pain (principal)
CPT/HCPCS: 36415; 52005; 74420; 76000; 80048; 81015; 85025; 87086; 88108; 96365; 96375; G0378

== ENCOUNTER 2017-05-03 19:34 | Emergency (ER) | payer BC, OTHER ==
[2017-05-03] MEDS ORDERED: NORMAL SALINE 1,000 ML IV ONE (19:53)
[2017-05-03 20:10] LABS: Hematocrit 37.5 % (37.0-47.0); Hemoglobin 12.5 gm/dL (12.5-16.0); Mean Cell Volume 97.2 fl (78-100); Mean Corpuscular Hemoglobin 32.4 pg (27-31); Mean Corpuscular Hgb Conc 33.3 g/dl (32-36); Platelet Count 205 K/mm3 (150-450); Red Blood Count 3.86 M/mm3 (4.2-5.4); Red Cell Distribution Width 11.9 % (11.5-14.0); White Blood Count 15.2 K/mm3 (4.0-10.5)
[2017-05-03 20:26] LABS: Albumin * 3.7 gm/dl (3.4-5.0); Anion Gap 15.9 mmol/L (6.8-13.8); BUN/Creatinine Ratio 11.6 (9.0-21.6); Bilirubin, Total 0.9 mg/dL (0.0-1.1); Ca. Corrected For Albumin 8.9 mg/dL (8.4-10.2); Carbon Dioxide 23.7 mmol/L (24-32.6); Potassium 3.6 mmol/L (3.4-4.6); Total Protein 7.7 gm/dL (6.2-8.2)
[2017-05-03 20:31] LABS: Urine Bilirubin Negative (NEGATIVE); Urine Ketone Large mg/dL (NEGATIVE); Urine Nitrite Negative (NEGATIVE); Urine Protein 15 mg/dL (NEGATIVE); Urine Specific Gravity 1.015 SP.GR. (1.005-1.010); Urine Urobilinogen Normal (NORMAL); Urine pH 8.5 pH (5.0-7.0)
--- NOTE | 2017-05-03 20:32 | ERNOTE ---
Medical Problem HPI - General Chief Complaint: Fever Time Seen by Provider: 05/03/17 20:07 Source: patient Exam Limitations: clinical condition - Immun/Allergies/Home Medications Immunizations: IMMUNIZATION HX Immunizations Up to Date Yes History of Influenza Vaccine Yes Hx Pneumococcal Vaccination No Allergies/Adverse Reactions: Allergies latex Allergy (Severe, Verified 05/03/17 21:33) Swelling (Other) Penicillins Allergy (Severe, Verified 05/03/17 21:33) "can't breathe" Sulfa (Sulfonamide Antibiotics) [Sulfa(Sulfonamide Antibiotics)] Allergy (Severe , Verified 05/03/17 21:33) Hives mesalamine [From Asacol] Allergy (Mild, Verified 05/03/17 21:33) rash Home Medications: HOME MEDICATIONS Ibuprofen [Motrin] 600 mg PO Q6H PRN 01/10/17 [Last Taken Unknown] ALPRAZolam [Xanax] 0.25 mg PO TID PRN 01/12/17 [Last Taken Unknown] Amitriptyline HCl [Elavil] 10 mg PO HS 01/12/17 [Last Taken Unknown] Mirtazapine [Remeron] 45 mg PO HS 01/12/17 [Last Taken Unknown] Zolpidem Tartrate [Ambien] 5 mg PO HS 01/12/17 [Last Taken Unknown] traMADol HCL [Ultram] 50 mg PO TID PRN 01/12/17 [Last Taken Unknown] Oxybutynin Chloride [Ditropan] 5 mg PO Q6H PRN #0 tablet 01/13/17 [Last Taken Unknown] Nabumetone 750 mg PO BID #20 tablet 05/04/17 [Last Taken Unknown] - History of Present History Narrative: Pt began to have sore throat yesterday. She was at the [facility] yesterday and went to a urgent care and was diagnosed with strep pharyngitis and given a z-pack. She has continued to worsen with body aches and fever she has been unable to control with OTC medications. She was unable to take her antibiotics today due to "not feeling well" Timing: getting worse Severity: moderate Modifying Factors - (Improves): Absent: medication Review of Systems - Review of Systems Constitutional: Present: See HPI, recent illness, fever, fatigue EYE: Present: no symptoms reported ENT: Present: sore throat - right side Respiratory: Absent: shortness of breath, cough Cardiology: Absent: chest pain, palpitations Gastrointestinal/Abdominal: Absent: nausea, vomiting, diarrhea Genitourinary: Absent: frequency, pain Musculoskeletal: Present: back pain, muscle pain, joint pain - "all over" Skin: Absent: rash Neurological: Present: other - feels somewhat confused Endocrine: Present: no symptoms reported Hematologic/Lymphatic: Present: no symptoms reported Psych: Present: no symptoms reported - Patient's Past Medical History Patient History - Medical: Anxiety, Depression, Headache, Kidney stone, Migraines Patient History - Cardiac/Respiratory: No pertinent hx Patient History - Cancer: No Hx of Cancer Patient History - Surgical Procedures: , Tubal Ligation, Other Patient History - Other: None - Family History Mother Family History - Medical: No pertinent hx Family History - Cardiac/Respiratory: Hypertension Family History - Cancer: No pertinent family hx Father Family History - Medical: History Unknown Family History - Cardiac/Respiratory: History Unknown Family History - Cancer: Non Hodgkins Lymphoma Grandfather-Maternal Family History - Medical: No pertinent hx Family History - Cardiac/Respiratory: CHF Family History - Cancer: No pertinent family hx - Social History Living Situations: home Abuse History: No History of abuse Psych History: Hx of Anxiety, Hx of Depression, Current tx/ever been on anti- depressants or anti-anxiety meds Does anyone smoke in the home?: No Smoking Status: Never smoker Alcohol Use: none Drug Use: none - Immunizations Immunizations Up to Date: Yes Hx Pneumococcal Vaccination: No History of Influenza Vaccine: Yes Physical Exam - Physical Exam General Appearance: Present: wd/wn, alert, moderate distress Head Exam: Present: normal inspection, no evidence of injury Eye Exam: Normal inspection: bilateral, PERRL: bilateral, EOMI: bilateral Ears, Nose, Throat: Present: pharyngeal erythema Neck: Present: full range of motion - able to touch chin to chest, no nuchal rigidity. , lymphadenopathy (L), tender lateral - Tender on the right Respiratory: Present: no respiratory distress, lungs clear Cardiovascular/Chest: Present: no murmur, tachycardia Gastrointestinal/Abdominal: Present: normal bowel sounds, tenderness - difffuse Back Exam: Present: no vertebral tenderness, other - diffuse tenderness Extremity Exam: Present: other - pain with movement of all joints Neurological Exam: Present: alert, oriented, no motor/sensory deficits Skin Exam: Present: normal color, warm/dry ED Progress - Results and Orders Patient's Lab Results:: I have reviewed the patient's lab results. Results and Orders: Laboratory Tests 05/03/17 05/03/17 05/03/17 20:10 20:10 20:10 WBC 15.2 H Hgb 12.5 Hct 37.5 Plt Count 205 Neutrophils % 86.0 H Sodium 136 Potassium 3.6 Chloride 100 Carbon Dioxide 23.7 L Anion Gap 15.9 H BUN 13 Creatinine 1.12 Est GFR (Non-Af Amer) 59 L D BUN/Creatinine Ratio 11.6 Random Glucose 123 H Lactic Acid, Venous 1.0 Calcium 9.0 Total Bilirubin 0.9 AST 16 ALT 20 Alkaline Phosphatase 87 Total Protein 7.7 Albumin 3.7 Urine Color Urine Appearance Urine pH Ur Specific Madelia Urine Protein Urine Glucose (UA) Urine Ketones Urine Blood Urine Nitrate Urine Bilirubin Prot Sulfosalicylic Acd Urine Urobilinogen Ur Leukocyte Esterase Urine RBC Urine WBC Ur Epithelial Cells Urine Bacteria Urine Culture Comments Mycoplasma pneumon IgM Group A Strep Rapid 05/03/17 05/03/17 05/03/17 20:29 20:29 20:29 WBC Hgb Hct Plt Count Neutrophils % Sodium Potassium Chloride Carbon Dioxide Anion Gap BUN Creatinine Est GFR (Non-Af Amer) BUN/Creatinine Ratio Random Glucose Lactic Acid, Venous Calcium Total Bilirubin AST ALT Alkaline Phosphatase Total Protein Albumin Urine Color Yellow Urine Appearance Slightly cloudy Urine pH 8.5 Ur Specific Madelia 1.015 Urine Protein 15 H Urine Glucose (UA) Negative Urine Ketones Large Urine Blood 5 H Urine Nitrate Negative Urine Bilirubin Negative Prot Sulfosalicylic Acd Negative Urine Urobilinogen Normal Ur Leukocyte Esterase Negative Urine RBC 0-5 Urine WBC 0-5 Ur Epithelial Cells >25 H Urine Bacteria 2+ H Urine Culture Comments No culture indicated Mycoplasma pneumon IgM Reactive H Group A Strep Rapid Positive H - Vital Signs Patient's Vital Signs:: I have reviewed the patient's vital signs. Vital Signs: Vital Signs 05/03/17 19:39 Temperature 38.9 C H Pulse Rate 115 H Respiratory 22 H Rate Blood Pressure 103/65 O2 Sat by Pulse 98 Oximetry - X-Ray X-Ray #1 X-Ray: chest Interpretation: Reviewed by me X-ray Comments: no infiltrate or effusion - Progress/Reassessment Chief Complaint: Fever Progress:: Improved Progress Note-Subjective: 05/04/17 01:41 Pt's fever and overall pain improved with toradol. Pt given her next dose of azithromycin IV due to her difficulty with oral medication today Departure - Departure Clinical Impression: Strep pharyngitis, Mycoplasma infection, unspecified site Disposition: Home Follow Up Needed Condition: Fair Instructions: Strep Throat, [id number] Additional Instructions: watch out for cough or shortness of breath. Return to ER if worsening, continue to take your antibiotics as directed. Take prescription anti- inflamatory until feeling better. Do not take any ibuprofen or aleve while taking it. Referrals: Zainab Young DO [Primary Care Provider] - Prescriptions: Nabumetone 750 mg PO BID #20 tablet
[2017-05-03 20:45] LABS: Urine Appearance Slightly Cloudy; Urine Blood 5 /ul (NEGATIVE); Urine Color Yellow; Urine RBC 0-5 /hpf (0-5); Urine WBC 0-5 /hpf (0-5)
[2017-05-03 20:46] LABS: Urine Bacteria 2+
[2017-05-03] MEDS ORDERED: KETOROLAC TROMETHAMINE 30 MG/ML VIAL ONE (21:36)
[2017-05-03] MEDS ORDERED: KETOROLAC TROMETHAMINE 30 MG/ML VIAL IV ONE (21:36)
[2017-05-04] MEDS ORDERED: AZITHROMYCIN 250 MG in NORMAL SALINE 250 ML IV SCH (00:45)
[2017-05-04] MEDS ORDERED: CYCLOBENZAPRINE HCL 10 MG TABLET PO ONE ×2 (02:05→02:06)
[2017-05-04] MEDS ORDERED: CYCLOBENZAPRINE HCL 10 MG TABLET ONE (02:05)
[2017-05-04 02:32] VITALS: BP 96/44
== END 2017-05-04 02:15 | disposition home or self-care (01) ==
LOC: ER 19:34
DX: J02.0 Streptococcal pharyngitis (principal); A49.3 Mycoplasma infection, unspecified site

== ENCOUNTER 2017-05-05 05:23 | Emergency (ER) | payer BC, OTHER ==
[2017-05-05] MEDS ORDERED: BENZONATATE 100 MG CAPSULE PO ONE ×2 (05:56→06:01)
[2017-05-05] MEDS ORDERED: NORMAL SALINE 1,000 ML IV ONE ×2 (05:56→07:42)
[2017-05-05] MEDS ORDERED: ONDANSETRON HCL/PF 2 MG/ML VIAL IV ONE (05:56)
--- NOTE | 2017-05-05 05:58 | ERNOTE ---
<Oscar Meng - Last Filed: 05/05/17 08:01> Medical Problem HPI - General Chief Complaint: General Assessment Time Seen by Provider: 05/05/17 05:42 Source: patient Exam Limitations: no limitations - Immun/Allergies/Home Medications Immunizations: IMMUNIZATION HX Immunizations Up to Date Yes History of Influenza Vaccine Yes Hx Pneumococcal Vaccination No Allergies/Adverse Reactions: Allergies latex Allergy (Severe, Verified 05/05/17 05:34) Swelling (Other) Penicillins Allergy (Severe, Verified 05/05/17 05:34) "can't breathe" Sulfa (Sulfonamide Antibiotics) [Sulfa(Sulfonamide Antibiotics)] Allergy (Severe , Verified 05/05/17 05:34) Hives mesalamine [From Asacol] Allergy (Mild, Verified 05/05/17 05:34) rash Home Medications: HOME MEDICATIONS ALPRAZolam [Xanax] 0.25 mg PO TID PRN 01/12/17 [Last Taken Unknown] Amitriptyline HCl [Elavil] 10 mg PO HS 01/12/17 [Last Taken Unknown] Mirtazapine [Remeron] 45 mg PO HS 01/12/17 [Last Taken Unknown] Zolpidem Tartrate [Ambien] 5 mg PO HS 01/12/17 [Last Taken Unknown] traMADol HCL [Ultram] 50 mg PO TID PRN 01/12/17 [Last Taken Unknown] Oxybutynin Chloride [Ditropan] 5 mg PO Q6H PRN #0 tablet 01/13/17 [Last Taken Unknown] Nabumetone 750 mg PO BID #20 tablet 05/04/17 [Last Taken Unknown] Azithromycin [Zithromax] 250 mg PO DAILY 05/05/17 [Last Taken Unknown] Benzonatate 100 mg PO QID PRN #15 capsule 05/05/17 [Last Taken Unknown] Promethazine HCl [Phenergan] 25 - 50 mg PO QID PRN #30 tab 05/05/17 [Last Taken Unknown] - History of Present History Narrative: diagnosed with strep and mycoplasma yesterday. Began vomiting this am, unable to keep ibuprofen or tylenol down Timing: constant Severity: moderate Review of Systems - Review of Systems Constitutional: Present: See HPI, recent illness, fever EYE: Present: no symptoms reported ENT: Present: no symptoms reported Respiratory: Present: shortness of breath, cough - began last night Cardiology: Absent: chest pain, palpitations Gastrointestinal/Abdominal: Present: nausea, vomiting Genitourinary: Present: no symptoms reported Musculoskeletal: Present: muscle pain, muscle stiffness Skin: Absent: rash Neurological: Present: no symptoms reported Endocrine: Present: increased thirst Hematologic/Lymphatic: Present: swollen glands Psych: Present: no symptoms reported - Patient's Past Medical History Patient History - Medical: Anxiety, Depression, Headache, Kidney stone, Migraines Patient History - Cardiac/Respiratory: No pertinent hx Patient History - Cancer: No Hx of Cancer Patient History - Surgical Procedures: , Tubal Ligation, Other Patient History - Other: None - Family History Mother Family History - Medical: No pertinent hx Family History - Cardiac/Respiratory: Hypertension Family History - Cancer: No pertinent family hx Father Family History - Medical: History Unknown Family History - Cardiac/Respiratory: History Unknown Family History - Cancer: Non Hodgkins Lymphoma Grandfather-Maternal Family History - Medical: No pertinent hx Family History - Cardiac/Respiratory: CHF Family History - Cancer: No pertinent family hx - Social History Living Situations: home Abuse History: No History of abuse Psych History: Hx of Anxiety, Hx of Depression, Current tx/ever been on anti- depressants or anti-anxiety meds Does anyone smoke in the home?: No Smoking Status: Never smoker Alcohol Use: none Drug Use: none - Immunizations Immunizations Up to Date: Yes Hx Pneumococcal Vaccination: No History of Influenza Vaccine: Yes Physical Exam - Physical Exam General Appearance: Present: wd/wn, alert, mild distress Head Exam: Present: normal inspection Eye Exam: Normal inspection: bilateral Ears, Nose, Throat: Present: pharyngeal erythema - mild Neck: Present: lymphadenopathy (L) Respiratory: Present: no respiratory distress, normal breath sounds, lungs clear Cardiovascular/Chest: Present: tachycardia Gastrointestinal/Abdominal: Present: normal bowel sounds, nontender Back Exam: Present: normal range of motion, no vertebral tenderness Extremity Exam: Present: normal inspection, normal range of motion, no edema Neurological Exam: Present: alert, oriented Skin Exam: Present: normal color, warm/dry ED Progress - Vital Signs Patient's Vital Signs:: I have reviewed the patient's vital signs. Vital Signs: Vital Signs 05/05/17 05:29 Temperature 38.4 C H Pulse Rate 104 H Respiratory 18 Rate Blood Pressure 105/68 O2 Sat by Pulse 98 Oximetry - Progress/Reassessment Chief Complaint: General Assessment Progress:: Unchanged - Transfer of Care Physician Sign Out: Oscar Meng Receiving Physician: Laila Reyes Pending Results: Labs Expected Disposition: Discharge Departure - Departure Clinical Impression: Acute bronchitis due to Mycoplasma pneumoniae, Strep pharyngitis Disposition: Home self-care Condition: Good Instructions: Nausea, Adult, Acute Bronchitis Additional Instructions: take tylenol and ibuprofen as needed for fever and pain, you can take the next dose of tylenol at 11:30 take the nausea medication as needed and the antibiotics as prescribed (you won't need a dose till tomorrow as you got it in the IV in the ER) Referrals: Zainab Young DO [Primary Care Provider] - Prescriptions: Benzonatate 100 mg PO QID PRN #15 capsule PRN Reason: Cough Promethazine HCl [Phenergan] 25 - 50 mg PO QID PRN #30 tab PRN Reason: nausea/vomiting <Laila Reyes - Last Filed: 05/05/17 09:05> Medical Problem HPI - Immun/Allergies/Home Medications Immunizations: IMMUNIZATION HX Immunizations Up to Date Yes History of Influenza Vaccine Yes Hx Pneumococcal Vaccination No ED Progress - Results and Orders Patient's Lab Results:: I have reviewed the patient's lab results. - Vital Signs Patient's Vital Signs:: I have reviewed the patient's vital signs. Vital Signs: Vital Signs 05/05/17 05/05/17 05/05/17 05:29 06:20 06:51 Temperature 38.4 C H 40.2 C H Pulse Rate 104 H 102 H 115 H Respiratory 18 18 16 Rate Blood Pressure 105/68 109/68 111/68 O2 Sat by Pulse 98 95 94 Oximetry 05/05/17 07:43 Temperature 39.1 C H Pulse Rate 114 H Respiratory 20 Rate Blood Pressure 99/62 O2 Sat by Pulse 95 Oximetry - Progress/Reassessment Progress Note-Subjective: 05/05/17 08:30 patient feeling a little better, nausea improved after IV fluids and meds, tolerating ice chips reviewed past charts and chart from today 05/05/17 09:04 explained test results, HR and temp improved
[2017-05-05] MEDS ORDERED: ONDANSETRON HCL/PF 2 MG/ML VIAL ONE (06:00)
[2017-05-05] MEDS ORDERED: AZITHROMYCIN 250 MG in DEXTROSE 5 % IN WATER 250 ML IV PRN ×2 (06:30)
[2017-05-05] MEDS ORDERED: KETOROLAC TROMETHAMINE 30 MG/ML VIAL IV ONE (06:46)
[2017-05-05] MEDS ORDERED: KETOROLAC TROMETHAMINE 30 MG/ML VIAL ONE (06:52)
[2017-05-05] MEDS ORDERED: ACETAMINOPHEN 500 MG TABLET PO ONE (07:29)
[2017-05-05 08:32] LABS: Hematocrit 31.8 % (37.0-47.0); Hemoglobin 10.7 gm/dL (12.5-16.0); Mean Cell Volume 96.1 fl (78-100); Mean Corpuscular Hemoglobin 32.3 pg (27-31); Mean Corpuscular Hgb Conc 33.6 g/dl (32-36); Mean Platelet Volume 10.8 fl (6.0-9.5); Neutrophil # 9.7 K/mm3 (1.3-6.0); Neutrophil % 87.3 % (42-75.0); Platelet Count 149 K/mm3 (150-450); Red Blood Count 3.31 M/mm3 (4.2-5.4); Red Cell Distribution Width 11.9 % (11.5-14.0); White Blood Count 11.1 K/mm3 (4.0-10.5)
[2017-05-05 08:42] LABS: Albumin * 2.7 gm/dl (3.4-5.0); Anion Gap 12.6 mmol/L (6.8-13.8); Bilirubin, Total 0.5 mg/dL (0.0-1.1); Ca. Corrected For Albumin 8.2 mg/dL (8.4-10.2); Calcium * 7.5 mg/dL (7.9-10.9); Carbon Dioxide 23.8 mmol/L (24-32.6); Potassium 3.4 mmol/L (3.4-4.6); Total Protein 6.2 gm/dL (6.2-8.2)
[2017-05-05 08:44] VITALS: BP 109/66
[2017-05-05 08:50] LABS: Urine Bilirubin Negative (NEGATIVE); Urine Blood 25 /ul (NEGATIVE); Urine Ketone 50 mg/dL (NEGATIVE); Urine Nitrite Negative (NEGATIVE); Urine Protein Negative (NEGATIVE); Urine Specific Gravity <=1.005 SP.GR. (1.005-1.010); Urine Urobilinogen Normal (NORMAL); Urine pH 5.5 pH (5.0-7.0)
[2017-05-05 08:57] LABS: Urine Appearance Clear; Urine Bacteria TRACE; Urine Color Pale Yellow; Urine RBC TRACE /hpf (0-5); Urine WBC TRACE /hpf (0-5)
== END 2017-05-05 09:16 | disposition home or self-care (01) ==
LOC: ER 05:23
DX: J20.0 Acute bronchitis due to Mycoplasma pneumoniae (principal); J02.0 Streptococcal pharyngitis
CPT/HCPCS: 36415; 80053; 81001; 83605; 85025; 96365; 96375; 99284; J2405

== ENCOUNTER 2017-05-09 15:44 | Emergency (ER) | payer BC, OTHER ==
[2017-05-09] MEDS ORDERED: ALBUTEROL SULFATE/IPRATROPIUM 3 ML NEBU IH ONE ×2 (15:59→16:01)
[2017-05-09] MEDS ORDERED: NORMAL SALINE 1,000 ML IV ONE (16:06)
--- NOTE | 2017-05-09 16:07 | ERNOTE ---
Date of Service: 05/09/17 Time Seen by Provider: 05/09/17 15:56 Stated Complaint: URI Presenting Symptoms:: cough Source: patient, RN/MD, RN notes reviewed, past records Exam Limitations: clinical condition Immunizations: IMMUNIZATION HX Immunizations Up to Date Yes History of Influenza Vaccine Yes Hx Pneumococcal Vaccination No Allergies/Adverse Reactions: Allergies latex Allergy (Severe, Verified 05/05/17 05:34) Swelling (Other) Penicillins Allergy (Severe, Verified 05/05/17 05:34) "can't breathe" Sulfa (Sulfonamide Antibiotics) [Sulfa(Sulfonamide Antibiotics)] Allergy (Severe , Verified 05/05/17 05:34) Hives mesalamine [From Asacol] Allergy (Mild, Verified 05/05/17 05:34) rash Home Medications: HOME MEDICATIONS ALPRAZolam [Xanax] 0.25 mg PO TID PRN 01/12/17 [Last Taken Unknown] Amitriptyline HCl [Elavil] 10 mg PO HS 01/12/17 [Last Taken Unknown] Mirtazapine [Remeron] 45 mg PO HS 01/12/17 [Last Taken Unknown] Zolpidem Tartrate [Ambien] 5 mg PO HS 01/12/17 [Last Taken Unknown] traMADol HCL [Ultram] 50 mg PO TID PRN 01/12/17 [Last Taken Unknown] Oxybutynin Chloride [Ditropan] 5 mg PO Q6H PRN #0 tablet 01/13/17 [Last Taken Unknown] Nabumetone 750 mg PO BID #20 tablet 05/04/17 [Last Taken Unknown] Azithromycin [Zithromax] 250 mg PO DAILY 05/05/17 [Last Taken Unknown] Benzonatate 100 mg PO QID PRN #15 capsule 05/05/17 [Last Taken Unknown] Promethazine HCl [Phenergan] 25 - 50 mg PO QID PRN #30 tab 05/05/17 [Last Taken Unknown] Promethazine HCl/Codeine [Prometh-Codein 6.25-10 mg/5 ml] 5 ml PO Q4H PRN #120 ml 05/09/17 [Last Taken Unknown] - History of Present Ilness Narrative: Ernestine is a 36 year old female brought to the ED from the walk in clinic for pneumonia that is not improving. She was diagnosed with strep throat and 05/02 at an outside clinic. She as treated with a ZPack. She was then seen here the next day with a fever and body aches. She was diagnosed with mycoplasma pneumonia. She returned again 2 days later for vomiting and was given IV fluids and IV Zithromax. She is having breathing difficulty and numbness/tingling in her hands and face today. She is afebrile despite not having any antipyretics for several hours. She reports that she has not vomited since yesterday. She has been unable to sleep due to coughing. Date (Duration): 05/02/17 Prior Treatment: Reports: recently seen, treated by physician, currently on antibiotics Review of Systems - Review of Systems Constitutional: Present: fatigue, malaise EYE: Present: no symptoms reported ENT: Absent: nose congestion, nasal drainage, sore throat Respiratory: Present: shortness of breath, cough, wheezing. Absent: stridor Cardiology: Absent: chest pain, syncope Gastrointestinal/Abdominal: Present: eating less, drinking less. Absent: vomiting, diarrhea, abdominal pain Genitourinary: Present: no symptoms reported Musculoskeletal: Present: no symptoms reported Skin: Absent: rash, lesions Neurological: Present: numbness, tingling. Absent: headache, dizziness/light- headedness, weakness Endocrine: Present: no symptoms reported Hematologic/Lymphatic: Present: no symptoms reported Psych: Present: anxiety - Patient's Past Medical History Patient History - Medical: Anxiety, Depression, Headache, Kidney stone, Migraines Patient History - Cardiac/Respiratory: No pertinent hx Patient History - Cancer: No Hx of Cancer Patient History - Surgical Procedures: , Tubal Ligation, Other Patient History - Other: None - Family History Mother Family History - Medical: No pertinent hx Family History - Cardiac/Respiratory: Hypertension Family History - Cancer: No pertinent family hx Father Family History - Medical: History Unknown Family History - Cardiac/Respiratory: History Unknown Family History - Cancer: Non Hodgkins Lymphoma Grandfather-Maternal Family History - Medical: No pertinent hx Family History - Cardiac/Respiratory: CHF Family History - Cancer: No pertinent family hx - Social History Living Situations: spouse Abuse History: No History of abuse Psych History: Hx of Anxiety, Hx of Depression, Current tx/ever been on anti- depressants or anti-anxiety meds Does anyone smoke in the home?: No Smoking Status: Never smoker Have you smoked in the past 12 months: No Do you dip or chew tobacco: No Alcohol Use: none Drug Use: none - Immunizations Immunizations Up to Date: Yes Hx Pneumococcal Vaccination: No History of Influenza Vaccine: Yes Physical Exam - Physical Exam General Appearance: Present: wd/wn, alert, mild distress, anxious Head Exam: Present: normal inspection Eye Exam: Normal inspection: bilateral Respiratory: Present: lungs clear, accessory muscle use, expiration (prolonged) Cardiovascular/Chest: Present: regular rate, rhythm, no murmur Extremity Exam: Present: normal inspection, no edema Skin Exam: Present: normal color, warm/dry ED Progress - Results and Orders Patient's Lab Results:: I have reviewed the patient's lab results. - Vital Signs Patient's Vital Signs:: I have reviewed the patient's vital signs. Vital Signs: Vital Signs 05/09/17 05/09/17 15:50 16:03 Temperature 36.9 C Pulse Rate 72 66 Respiratory 16 36 H Rate Blood Pressure 128/88 O2 Sat by Pulse 95 100 Oximetry - Progress/Reassessment Chief Complaint: Upper Respiratory Symptoms Progress:: Improved Progress Note-Subjective: 05/09/17 17:25 Numbness/tingling improved with Ativan. SpO2 100% on room air and lungs are clear. WBC has returned to normal. Reassured patient that her illness is improving. Departure - Departure Clinical Impression: Acute bronchitis due to Mycoplasma pneumoniae Disposition: Home Follow Up Needed Condition: Stable Instructions: Acute Bronchitis Additional Instructions: Finish your antibiotic Take alprazolam as directed if your are feeling short of breath and anxious, or if the tingling comes back Referrals: Zainab Young DO [Primary Care Provider] - Prescriptions: Promethazine HCl/Codeine [Prometh-Codein 6.25-10 mg/5 ml] 5 ml PO Q4H PRN #120 ml PRN Reason: Cough
[2017-05-09] MEDS ORDERED: LORazepam 2 MG/ML DISP.SYRIN IV ONE (16:13)
[2017-05-09] MEDS ORDERED: LORazepam 2 MG/ML DISP.SYRIN ONE (16:24)
[2017-05-09 17:02] LABS: ALT 18 U/L (19-67); AST 44 U/L (0-48); Albumin * 3.3 gm/dl (3.4-5.0); Alkaline Phosphatase * 81 U/L (50-170); Anion Gap 20.6 mmol/L (6.8-13.8); Bilirubin, Total 0.7 mg/dL (0.0-1.1); Carbon Dioxide 18.2 mmol/L (24-32.6); Chloride 102 mmol/L (97-106); Potassium 4.8 mmol/L (3.4-4.6); Sodium 136 mmol/L (132-142); Total Protein 7.7 gm/dL (6.2-8.2)
[2017-05-09 17:04] LABS: Hemoglobin 12.2 gm/dL (12.5-16.0); Mean Cell Volume 90.4 fl (78-100); Mean Corpuscular Hemoglobin 32.4 pg (27-31); Mean Corpuscular Hgb Conc 35.9 g/dl (32-36); Mean Platelet Volume 10.8 fl (6.0-9.5); Neutrophil # 6.3 K/mm3 (1.3-6.0); Neutrophil % 65.5 % (42-75.0); Platelet Count 250 K/mm3 (150-450); Red Blood Count 3.76 M/mm3 (4.2-5.4); Red Cell Distribution Width 11.5 % (11.5-14.0); White Blood Count 9.6 K/mm3 (4.0-10.5)
[2017-05-09 17:47] VITALS: BP 130/66
== END 2017-05-09 17:43 | disposition home or self-care (01) ==
LOC: ER 15:44
DX: J20.0 Acute bronchitis due to Mycoplasma pneumoniae (principal)